=== PATIENT | male | born 1945 | race Caucasian/White ===

== ENCOUNTER 2016-10-24 14:51 | Inpatient (IN) | payer MEDICARE, BC ==
[~2016-10-24] VITALS: Ht 180.3 cm; Wt 117.9 kg
[2016-10-27] MEDS ORDERED: ATEN25TA PO (09:45)
[2016-10-27] MEDS ORDERED: FENO160T PO (09:46)
[2016-10-27] MEDS ORDERED: METF500T PO (09:46)
[2016-10-27] MEDS ORDERED: ATOR40TA16 PO (09:47)
[2016-10-27] MEDS ORDERED: RANI150C PO (09:48)
[2016-10-27] MEDS ORDERED: HYDR-3583 PO (09:49)
[2016-11-12] MEDS ORDERED: METOPROLOL TARTRATE 25 MG TAB PO PRN (06:30)
[2016-11-12] MEDS: ROPIVACAINE PERI-ARTICULAR INJECTION. PERIART SCH ×10 (06:30→10:49)
[2016-11-12] MEDS ORDERED: VANCOMYCIN 1000 MG/NS 250 ML (for <70 kg) IV SCH ×2 (06:30)
[2016-11-12] MEDS ORDERED: INSULIN HUMAN REGULAR 1,000 UNITS/10 ML VIAL SQ PRN (06:30)
[2016-11-12] MEDS ORDERED: DEXAMETHASONE SOD PHOS 20 MG/5 ML VIAL IV ONE (06:30)
[2016-11-12] MEDS: POVIDONE IODINE 7.5% SCRUB 118 ML BOTTLE TOP SCH (06:30)
[2016-11-12] MEDS ORDERED: SODIUM CHLORID 0.9% 500 ML IV SCH (06:30)
[2016-11-12] MEDS ORDERED: ceFAZolin 2 GM PREMIX 50 ML IV SCH (06:30)
[2016-11-12 06:39] VITALS: BP 144/69; PULSE 74; RESP 16; TEMP 98.3; O2SAT 96
--- NOTE | 2016-11-12 06:58 | HHI.DCPOC ---
Discharge Care Plan Diagnosis: (1) Primary localized osteoarthrosis, lower leg (2) Status post total knee replacement, right Your Health Problems Are: Difficulty with ADL Goals to Promote Your Health * To prevent worsening of your condition and complications * To maintain your health at the optimal level Directions to Meet Your Goals Take your medications as prescribed Follow your dietary instruction Follow activity as directed Keep your appointments as scheduled Take your immunizations and boosters as scheduled If your symptoms worsen call your PCP, if no PCP go to Urgent Care Center or Emergency Room Smoking is Dangerous to Your Health. Avoid second hand smoke Call the 24-hour hour crisis hotline for domestic abuse at Erwin Saba Nov 12, 2016 06:58
--- NOTE | 2016-11-12 06:59 | HHI.FF ---
Face to Face Verification Diagnosis: (1) Primary localized osteoarthrosis, lower leg (2) Status post total knee replacement, right Physical Therapy Gait training, Transfer training, bed to chair Knee: Total knee Right LE Weight Bearing: WB as tolerated Right LE Range of Motion: Active ROM Nursing Nursing: [place] teaching, Dressing changes Dressing Changes: Daily dressing change I have seen patient David Rojas on 11/12/16. My clinical findings support the need for the requested home health care services because: Limited ability to care for self High risk of falls I certify that my clinical findings support that this patient is homebound because: Post-op weakness Unsteady gait/balance Erwin Saba Nov 12, 2016 06:59
[2016-11-12] MEDS ORDERED: WALKER WHEELS/F1 MIS (07:00)
[2016-11-12] MEDS: LACTATED RINGER'S 1000 ML IV SCH (07:00)
[2016-11-12] MEDS ORDERED: CPMMACHINE (07:00)
[2016-11-12] MEDS ORDERED: COMMODE 3-IN-11 MIS (07:00)
[2016-11-12] MEDS: TRANEXAMIC ACID IV SCH ×2 (07:15→10:25)
[2016-11-12] MEDS: SODIUM CHLORIDE 0.9% IV SCH ×2 (07:15→10:25)
[2016-11-12] MEDS ORDERED: GENTAMICIN SULFATE 80 MG/2 ML VIAL ONE (07:24)
[2016-11-12] MEDS ORDERED: HYDROmorphone HCL PF 2 MG/ML VIAL ONE (09:52)
[2016-11-12] MEDS ORDERED: ACETAMINOPHEN 1000 MG/100 ML VIAL IV ONE (09:52)
[2016-11-12] MEDS ORDERED: MIDAZOLAM HCL 5 MG/5 ML VIAL ONE (09:57)
[2016-11-12] MEDS ORDERED: fentaNYL CITRATE 250 MCG/5 ML AMP ONE (10:01)
--- NOTE | 2016-11-12 11:54 | PD.OP ---
cc: Young Lay MD Operative Report Date of Surgery: Nov 12, 2016 Preoperative Diagnosis: Right knee severe osteoarthritis Postoperative Diagnosis: Same Procedure: Right total knee arthroplasty Anesthesia: Adductor canal block and general Surgeon: Young Lay Bottom Bleacher(s): MANISHA Gonzales The surgical procedure was assisted by my Advanced Registered Nurse Practitioner. My UNEMPLOYMENT INSURANCE DIRECTOR presence was necessary throughout this case for the manipulation and positioning of the surgical extremity. My UNEMPLOYMENT INSURANCE DIRECTOR was assisting me throughout the duration of this procedure. The skill set of an Advance Registered Nurse Practitioner was medically necessary to complete this procedure. During the surgical case, the surgical product sales consultant was working at the back table and the Advance Registered Nurse Practitioner was directly assisting me. Operation and Findings: IMPLANTS: DePuy Attune: Patella: size 38. Femur, posterior stabilized size 8. Tibia, rotating platform size 8. Tibial insert, rotating platform, posterior stabilized size 5 mm thickness. ESTIMATED BLOOD LOSS: 125 cc TOURNIQUET TIME: 40 minutes at 250 mmHg pressure. JUSTIFICATION FOR PROCEDURE: The patient has end-stage osteoarthritis to the knee. There is an attached conservative measures pathway form in the chart that describes the nonoperative measures that were undertaken prior to consideration of surgical management. The patient understood the risks and benefits of surgical management. See my office notes for further details PROCEDURE: The patient was brought back to the operative theatre. Adequate anesthesia was obtained. The patient received intravenous vancomycin and Ancef. The lower extremity was prepped and draped in the usual sterile fashion.The leg was exsanguinated, the tourniquet was raised. A standard anterior incision was performed followed by medial parapatellar arthrotomy was performed. End-stage arthritis was identified. Osteotomy of the patella was performed. We drilled holes for the patella. We trialed the patella component. We placed an intramedullary guide into the distal femur. We ultimately resected 11 mm off of the distal femur in 5 degrees of valgus. The remnants of the ACL and PCL were resected. Osteotomy of the proximal tibia was performed, resecting 5 mm off of the medial side. This was done with 3 degrees of posterior slope using an extramedullary guide. The distal end of the guide was placed in the mid aspect of the ankle. The femur was sized, and four chamfer cuts were completed in 3 of external rotation. We then cut the central box in the distal femur to replace the PCL. We resected the remnants of the menisci and removed osteophytes off of the femur and tibia. We then trialed the knee. We punched the tibia for the keel, and then used standard technique to cement in components. Excess cement was removed. We trialed the knee again and the final polyethylene thickness was chosen to provide extension to 0 degrees, and flexion of 140 degrees to gravity. The ligaments were appropriately balanced. Lateral release was necessary to obtain excellent patellofemoral tracking. The tourniquet was released and adequate hemostasis was obtained. An intra- articular injection of a ropivacaine cocktail was injected. The posterior knee was inspected for excess cement, which was removed. The final polyethylene was put into position after thorough irrigation. We then closed deep fascia with a #2 Stratafix followed by skin with 2-0 Vicryl followed by anibal. Postop plan is to weight-bear as tolerated. DVT prophylaxis will be performed with Kane, RICHELLE gasca, early mobilization, and Lovenox followed by aspirin. Young Lay MD Nov 12, 2016 11:54
[2016-11-12] MEDS ORDERED: HYDR-3366 PO (11:56)
[2016-11-12] MEDS ORDERED: ASPI325T PO (11:56)
[2016-11-12] MEDS ORDERED: ENOX40P SQ (11:56)
[2016-11-12] MEDS ORDERED: BISACODYL 10 MG SUPP PR PRN (12:00)
[2016-11-12] MEDS ORDERED: diphenhydrAMINE HCL 50 MG/ML VIAL IV PRN (12:00)
[2016-11-12] MEDS ORDERED: ALUMINUM/MAGNESIUM/SIMETH 30 ML CUP PO PRN (12:00)
[2016-11-12] MEDS ORDERED: ONDANSETRON HCL 4 MG/2 ML VIAL IVP PRN (12:00)
[2016-11-12] MEDS ORDERED: ACETAMINOPHEN/HYDROcodone 325 MG/10 MG TAB PO PRN (12:00)
[2016-11-12] MEDS ORDERED: NALOXONE HCL 0.4 MG/ML AMP IV PRN (12:00)
[2016-11-12] MEDS ORDERED: MORPHINE SULFATE 4 MG/ML INJ IV PUSH PRN (12:00)
[2016-11-12] MEDS ORDERED: MAGNESIUM HYDROXIDE SUSP 30 ML CUP PO PRN (12:00)
[2016-11-12] MEDS ORDERED: Post-op Orders (for Pharmacy) MISC XX ONE (12:00)
[2016-11-12] MEDS ORDERED: ZOLPIDEM TARTRATE 5 MG TAB PO PRN (12:00)
[2016-11-12] MEDS ORDERED: SODIUM CHLORIDE 0.9% FLUSH 5 ML FLUSH IVF PRN (12:00)
[2016-11-12] MEDS ORDERED: DO NOT ADM ANY ANTICOAGULANT DRUGS XX PRN (12:18)
[2016-11-12] MEDS ORDERED: BUPIVACAINE LIPOSOME PF 1.3% 20 ML VIAL ONE (12:22)
[2016-11-12] MEDS ORDERED: *RESP: ALBUTEROL 2.5 MG/3 ML NEB (PRN) PERIprocedural Use ONLY NEB ONE (12:39)
[2016-11-12] MEDS ORDERED: *morphine SULFATE 8 MG/ML PERIprocedure ONLY ONE ×2 (12:59→13:14)
--- NOTE | 2016-11-12 13:20 | RADRPT ---
EXAM DATE/TIME: 11/12/2016 12:44 [facility] COMPARISON: No previous studies available for comparison. INDICATIONS : Evaluate knee post total replacement. MEDICAL HISTORY : None. SURGICAL HISTORY : None. ENCOUNTER: Initial ACUITY: 1 day PAIN SCORE: 4/10 LOCATION: Right knee FINDINGS: There is placement of total knee prosthesis well seated with anterior overlying surgical anibal and air in soft tissues CONCLUSION: Prosthesis well seated Erik Medley MD on November 12, 2016 at 13:18 Board Certified Radiologist. This report was verified electronically.
[2016-11-12] MEDS: SODIUM CHLOR 0.9% 1000 ML INJ 1,000 ML IV SCH (13:25)
[2016-11-12] MEDS ORDERED: ONDANSETRON HCL 4 MG/2 ML VIAL IV PUSH ONE (13:55)
[2016-11-12] MEDS ORDERED: NEOSTIGMINE 3 MG/3 ML SYR IV ONE (13:55)
[2016-11-12] MEDS ORDERED: PROPOFOL 200 MG/20 ML AMP IV ONE (13:55)
[2016-11-12] MEDS ORDERED: LACTATED RINGER'S 1000 ML INJ 1,000 ML IV ONE (13:55)
--- NOTE | 2016-11-12 15:39 | PD.CONS ---
HPI Service [facility] Hospitalists Consult Requested By Dr. Lay Reason for Consult Medical management Primary Care Physician Christian Mclaughlin MD, [facility] Diagnoses: (1) Primary localized osteoarthrosis, lower leg (2) BPH (benign prostatic hypertrophy) (3) Diabetes mellitus (4) Hyperlipidemia (5) Hypertension History of Present Illness The patient is a 70-year-old male seen following right total knee arthroplasty. Hospitalist consultation was requested for medical management. Patient reports history of hypertension, BPH, diabetes mellitus. Pain is currently well controlled. Patient has no acute complaints. Review of Systems Constitutional: DENIES: Fever, Chills, Night Sweats Eyes: DENIES: Blurred vision, Vision loss Ears, nose, mouth, throat: DENIES: Hearing loss Respiratory: DENIES: Cough, Wheezing, Sputum production, Shortness of breath Cardiovascular: DENIES: Chest pain, Palpitations, Dyspnea on Exertion, Lower Extremity Edema Gastrointestinal: DENIES: Abdominal pain, Constipation, Diarrhea, Nausea, Vomiting Genitourinary: DENIES: Urinary frequency, Urinary incontinence, Urgency, Hematuria, Dysuria, Nocturia Musculoskeletal: COMPLAINS OF: Joint pain, DENIES: Muscle aches Integumentary: DENIES: Pruritus, Rash Hematologic/lymphatic: DENIES: Bruising Neurologic: DENIES: Headache Past Family Social History Allergies: Coded Allergies: No Known Allergies (Unverified , 11/12/16) Past Medical History BPH Diabetes mellitus Hyperlipidemia Hypertension Osteoarthritis Past Surgical History Left total knee arthroplasty Tonsillectomy Hernia repair Left orchiectomy Reported Medications Atenolol 25 mg twice a day Metformin 500 mg twice a day Fenofibrate 160 mg daily Lovastatin 40 mg daily at bedtime Ranitidine 150 mg twice a day [place] 10/325 as needed Family History Heart disease Diabetes mellitus Social History Quit smoking 30 years ago. Rare alcohol use. Denies illicit drug use. Physical Exam Vital Signs Vital Signs Date Time Temp Pulse Resp B/P Pulse Ox O2 Delivery O2 Flow Rate FiO2 11/12/16 13:00 58 15 113/68 98 Nasal Cannula 3 11/12/16 12:45 72 14 137/60 99 Aerosol Mask 11/12/16 12:30 88 16 130/55 96 Aerosol Mask 11/12/16 12:15 97.6 82 14 130/68 96 Simple Mask 6 11/12/16 06:39 98.3 74 16 144/69 96 Physical Exam GENERAL: Elderly male in no acute distress. HEENT: Normocephalic, atraumatic. Pupils equal, round and reactive. Extraocular movements intact. No scleral icterus. No injection or drainage. Oropharynx is clear. Mucous membranes are moist. CARDIOVASCULAR: Regular rate and rhythm without murmurs, gallops, or rubs. RESPIRATORY: Clear to auscultation. No wheezes, rales, or rhonchi. Breathing is non-labored. GASTROINTESTINAL: Abdomen soft, non-tender, nondistended. EXTREMITIES: No lower extremity edema. No calf tenderness. Right leg bandaged. PSYCH: Alert and oriented x 3. Laboratory Laboratory Tests Test 11/12/16 06:25 Blood Type A NEGATIVE Antibody Screen NEGATIVE Imaging Last Impressions Knee X-Ray 11/12/16 1151 Signed Impressions: Service Date/Time: Saturday, November 12, 2016 12:44 - CONCLUSION: Prosthesis well seated Erik Medley MD Assessment and Plan Assessment and Plan 1. Osteoarthritis: Status post right total knee arthroplasty, POD #0. Management per orthopedic surgery. Continue pain control, bowel regimen, physical therapy. 2. Hyperlipidemia: Continue Lipitor, fenofibrate. 3. Hypertension: Continue atenolol. 4. GERD: Continue Pepcid. 5. Diabetes mellitus: Continue metformin. Monitor Accu-Cheks and cover with sliding scale insulin. 6. DVT prophylaxis: Lovenox. Brady Tovar MD Nov 12, 2016 15:39
[2016-11-12] MEDS ORDERED: GLUCAGON 1 MG/ML VIAL OTHER PRN (15:45)
[2016-11-12] MEDS ORDERED: DEXTROSE 50% IN WATER 50 ML VIAL(D50) IV PUSH PRN (15:45)
[2016-11-12 16:00] VITALS: BP 112/66; PULSE 83; RESP 18; TEMP 96.4; O2SAT 92
[2016-11-12] MEDS ORDERED: SODIUM CHLORIDE 0.9% IV SCH (16:00)
[2016-11-12] MEDS ORDERED: TRANEXAMIC ACID IV SCH (16:00)
[2016-11-12] MEDS: INSULIN ASPART SUPPLEMENTAL SCALE SQ SCH ×2 (16:59→21:00)
[2016-11-12] MEDS: metFORMIN HCL 500 MG TAB PO SCH (17:00)
[2016-11-12] MEDS: ACETAMINOPHEN/HYDROcodone 325 MG/10 MG TAB PO PRN (18:28)
[2016-11-12 20:00] VITALS: BP 124/70; PULSE 80; RESP 17; TEMP 97.9; O2SAT 94
[2016-11-12] MEDS ORDERED: ATORVASTATIN 40 MG TAB PO SCH (21:00)
[2016-11-12] MEDS: SODIUM CHLORIDE 0.9% FLUSH 5 ML FLUSH IVF SCH (21:00)
[2016-11-12] MEDS: ATENOLOL 25 MG TAB PO SCH (23:00)
[2016-11-12] MEDS: FAMOTIDINE 20 MG TAB PO SCH (23:00)
[2016-11-13 00:10] VITALS: BP 103/64; PULSE 67; RESP 17; TEMP 98.6; O2SAT 96
[2016-11-13] MEDS: ACETAMINOPHEN/HYDROcodone 325 MG/10 MG TAB PO PRN ×3 (00:36→14:15)
[2016-11-13] MEDS: SODIUM CHLOR 0.9% 1000 ML INJ 1,000 ML IV SCH ×2 (00:41→08:36)
[2016-11-13 04:01] VITALS: BP 115/56; PULSE 68; RESP 17; TEMP 97.7; O2SAT 94
[2016-11-13 05:00] LABS: HEMATOCRIT 34.8 % (39.0-51.0); MEAN CELL VOLUME 88.9 FL (80.0-100.0); MEAN CORPUSCULAR HEMOGLOBIN 30.5 PG (27.0-34.0); MEAN CORPUSCULAR HGB CONC 34.3 % (32.0-36.0); PLATELET COUNT 150 TH/MM3 (150-450); RED BLOOD COUNT 3.91 MIL/MM3 (4.50-5.90); REVIEW FLAG FINAL; WHITE BLOOD COUNT 10.3 TH/MM3 (4.0-11.0)
[2016-11-13] MEDS: POVIDONE IODINE 7.5% SCRUB 118 ML BOTTLE TOP SCH (06:30)
[2016-11-13] MEDS: LACTATED RINGER'S 1000 ML IV SCH (06:30)
[2016-11-13] MEDS: INSULIN ASPART SUPPLEMENTAL SCALE SQ SCH ×3 (07:00→15:37)
[2016-11-13] MEDS ORDERED: DEXAMETHASONE SOD PHOS 20 MG/5 ML VIAL IV ONE (07:45)
[2016-11-13 08:00] VITALS: BP 104/65; PULSE 56; RESP 18; TEMP 98.3; O2SAT 95
[2016-11-13 08:22] VITALS: O2SAT 98
[2016-11-13] MEDS: FAMOTIDINE 20 MG TAB PO SCH (08:33)
[2016-11-13] MEDS: ATENOLOL 25 MG TAB PO SCH (08:33)
[2016-11-13] MEDS: SODIUM CHLORIDE 0.9% FLUSH 5 ML FLUSH IVF SCH (08:33)
[2016-11-13] MEDS: metFORMIN HCL 500 MG TAB PO SCH (08:33)
[2016-11-13] MEDS ORDERED: FENOFIBRATE 145 MG TAB PO SCH (09:00)
[2016-11-13] MEDS ORDERED: ENOXAPARIN SODIUM 40 MG/0.4 ML SYRINGE SQ SCH (11:00)
--- NOTE | 2016-11-13 11:38 | HHI.PR ---
Subjective Remarks Follow up hypertension, diabetes mellitus. Patient has no complaints at this time. He denies chest pain, dyspnea, nausea, vomiting. Objective Vitals Vital Signs Date Time Temp Pulse Resp B/P Pulse Ox O2 Delivery O2 Flow Rate FiO2 11/13/16 08:22 98 21 11/13/16 08:00 98.3 56 18 104/65 95 11/13/16 04:01 97.7 68 17 115/56 94 11/13/16 00:10 98.6 67 17 103/64 96 11/12/16 20:00 97.9 80 17 124/70 94 11/12/16 16:00 96.4 83 18 112/66 92 11/12/16 14:45 84 14 107/70 95 Nasal Cannula 3 11/12/16 14:00 74 14 121/62 95 Nasal Cannula 3 11/12/16 13:30 97.4 69 14 118/59 95 Nasal Cannula 3 11/12/16 13:15 59 14 118/59 97 Nasal Cannula 3 11/12/16 13:00 58 15 113/68 98 Nasal Cannula 3 11/12/16 12:45 72 14 137/60 99 Aerosol Mask 11/12/16 12:30 88 16 130/55 96 Aerosol Mask 11/12/16 12:15 97.6 82 14 130/68 96 Simple Mask 6 I/O 11/12/16 11/12/16 11/12/16 11/13/16 11/13/16 11/13/16 07:00 15:00 23:00 07:00 15:00 23:00 Intake Total 2225 ml 240 ml 726 ml Output Total 500 ml 600 ml 400 ml Balance 1725 ml -360 ml 326 ml Intake Oral 240 ml 120 ml IV Total 225 ml 606 ml Other 2000 ml Output Urine Total 375 ml 600 ml 400 ml Estimated Blood Loss 125 ml # Bowel Movements 0 0 Result Diagram: 11/13/16 0311 Imaging Last Impressions Knee X-Ray 11/12/16 1151 Signed Impressions: Service Date/Time: Saturday, November 12, 2016 12:44 - CONCLUSION: Prosthesis well seated Erik Medley MD Objective Remarks General: Elderly male in no acute distress. Sitting up in a chair. Heart: Regular rate and rhythm. No murmur. Lungs: Clear to auscultation bilaterally. No wheezes, rales, or rhonchi. Breathing is nonlabored. Abdomen: Soft, nontender, nondistended. Extremities: No lower extremity edema. Right lower extremity bandaged. Psych: Alert and oriented. Urinary Catheter: No Vascular Central Line Catheter: No A/P Problem List: (1) Primary localized osteoarthrosis, lower leg ICD Code: M17.10 Status: Acute (2) BPH (benign prostatic hypertrophy) ICD Code: N40.0 Status: Acute (3) Diabetes mellitus ICD Code: E11.9 Status: Acute (4) Hyperlipidemia ICD Code: E78.5 Status: Acute (5) Hypertension ICD Code: I10 Status: Acute Assessment and Plan 1. Osteoarthritis: Status post right total knee arthroplasty, POD #1. Management per orthopedic surgery. Continue pain control, bowel regimen, physical therapy. 2. Hyperlipidemia: Continue Lipitor, fenofibrate. 3. Hypertension: Continue atenolol. Blood pressure is well controlled. 4. GERD: Continue Pepcid. 5. Diabetes mellitus: Continue metformin. Monitor Accu-Cheks and cover with sliding scale insulin. 6. DVT prophylaxis: Lovenox. Discharge Planning Per orthopedic surgery. Brady Tovar MD Nov 13, 2016 11:38
[2016-11-13 12:00] VITALS: BP 115/63; PULSE 63; RESP 18; TEMP 97.2; O2SAT 92
--- NOTE | 2016-11-13 12:24 | PD.ORT.PN ---
Subjective Post Op Day #: 1 Subjective Remarks The patient is OOB in chair with minimal pain. Patient states his is having less pain than he did with his previous left TKA. Patient's cath is removed but he has not voided. Objective Vitals Vital Signs Date Time Temp Pulse Resp B/P Pulse Ox O2 Delivery O2 Flow Rate FiO2 11/13/16 08:22 98 21 11/13/16 08:00 98.3 56 18 104/65 95 11/13/16 04:01 97.7 68 17 115/56 94 11/13/16 00:10 98.6 67 17 103/64 96 11/12/16 20:00 97.9 80 17 124/70 94 11/12/16 16:00 96.4 83 18 112/66 92 11/12/16 14:45 84 14 107/70 95 Nasal Cannula 3 11/12/16 14:00 74 14 121/62 95 Nasal Cannula 3 11/12/16 13:30 97.4 69 14 118/59 95 Nasal Cannula 3 11/12/16 13:15 59 14 118/59 97 Nasal Cannula 3 11/12/16 13:00 58 15 113/68 98 Nasal Cannula 3 11/12/16 12:45 72 14 137/60 99 Aerosol Mask 11/12/16 12:30 88 16 130/55 96 Aerosol Mask 11/12/16 12:15 97.6 82 14 130/68 96 Simple Mask 6 I/O 11/12/16 11/12/16 11/12/16 11/13/16 11/13/16 11/13/16 07:00 15:00 23:00 07:00 15:00 23:00 Intake Total 2225 ml 240 ml 726 ml Output Total 500 ml 600 ml 400 ml Balance 1725 ml -360 ml 326 ml Intake Oral 240 ml 120 ml IV Total 225 ml 606 ml Other 2000 ml Output Urine Total 375 ml 600 ml 400 ml Estimated Blood Loss 125 ml # Bowel Movements 0 0 Result Diagram: 11/13/16310 Procedures Right TKA Objective Remarks The patient's dressing was changed with scant serosanguineous drainage. Incision is well approximated with surgical clips intact. No redness or s/s of infection. EHL/TA/G intact. 2+ pedal pulse. No swelling. Calf is soft and nontender. + SILT. Assessment & Plan Ortho Post Op Day #: 1 Problem List: Assessment and Plan POD #1: Right TKA 1. WBAT to the RLE 2. Lovenox for DVT prophylaxis 3. Ice to the right knee PRN 4. Stable for discharge home with home health today providing he is urinating independently without complication. Erwin Saba Nov 13, 2016 12:24
[2016-11-13] MEDS ORDERED: DOCUSATE SODIUM 100 MG CAP PO SCH (21:00)
[2016-11-13] MEDS ORDERED: MULTIVITAMINS/MINERALS THERAPEUTIC TAB PO SCH (21:00)
--- NOTE | 2016-11-15 17:19 | HHI.DS ---
Discharge Summary Admission Date Nov 12, 2016 at 05:45 Discharge Date: Nov 13, 2016 Admitting Diagnosis Primary localized OA, lower leg Status post total knee replacement, right Diagnosis: (1) Status post total knee replacement, right Diagnosis: Principal (2) Primary localized osteoarthrosis, lower leg Diagnosis: Principal Procedures Right TKA Brief History This is a 70 year old male patient with severe OA of the right knee CBC/BMP: 11/13/16 0311 Significant Findings Laboratory Tests Test 11/13/16 03:11 Red Blood Count 3.91 MIL/MM3 (4.50-5.90) Hemoglobin 11.9 GM/DL (13.0-17.0) Hematocrit 34.8 % (39.0-51.0) PE at Discharge The patient's dressing was changed with scant serosanguineous drainage. Incision is well approximated with surgical clips intact. No redness or s/s of infection. EHL/TA/G intact. 2+ pedal pulse. No swelling. Calf is soft and nontender. + SILT. Hospital Course The patient was admitted to the hospital for severe OA of the right knee to have a right TKA. The patient's surgery went well without complication. The patient had a normal hospital course. The patient is WBAT with the use of a walker. The patient was discharged home with home health and will f/u in the office with Dr. Lay in 1-2 weeks. Pt Condition on Discharge: Stable Discharge Disposition: Disch w/ Home Health Serv Discharge Instructions Diet Instructions: Diabetic Diet Activities You Can Perform: Weight Bearing as Jayesh Activities to Avoid: Strenuous Activity Follow up Referrals: Orthopedics with Young Lay MD [facility]/ with Nurse Circulation Clerk [phone] New Medications: Aspirin (Aspirin) 325 Mg Tab 325 MG PO DAILY Start Aspirin after Lovenox is completed. Prevent Blood Clot # 30 Ref 0 TAB Commode 3-in-1 (Commode 3-in-1) 1 Mis Mis 1 EA .ROUTE DIRECTED #1 Ref 0 EA CPM-Continuous Passive Motion Machine (CPM-Continuous Passive Motion Machine) 1 Ea Device 1 EA .ROUTE DIRECTED #1 Ref 0 EA Enoxaparin Inj (Lovenox Inj) 40 Mg/0.4 Ml Syr 40 MG SQ DAILY Start Aspirin after Lovenox is completed. Blood Clot Prevention # 10 Ref 0 SYRINGE Hydrocodone-Acetaminophen ([place]) 10-325 Mg Tab 1-2 TAB PO Q4H PRN PAIN #60 Ref 0 TAB Walker with Front Wheels (Walker with Front Wheels) 1 Mis Mis 1 EA .ROUTE DIRECTED #1 Ref 0 EA Continued Medications: Atenolol (Atenolol) 25 Mg Tab 25 MG PO BID Blood Pressure Management #60 Ref 0 TAB Atorvastatin (Atorvastatin) 40 Mg Tab 40 MG PO HS Cholesterol Management #30 Ref 0 TAB Fenofibrate (Fenofibrate) 160 Mg Tab 160 MG PO DAILY #30 Ref 0 TAB Metformin (Metformin) 500 Mg Tab 500 MG PO BIDPC With meals Blood Sugar Management #60 Ref 0 TAB Ranitidine (Ranitidine) 150 Mg Cap 150 MG PO BID #60 Ref 0 CAP Discontinued Medications: Hydrocodone-Acetaminophen (Hydrocodone-Acetaminophen) 10-325 mg Tab 1 TAB PO Q6H PRN PAIN Ref 0 TAB Erwin Saba Nov 15, 2016 17:19
== END 2016-11-13 16:52 | disposition home health service (06) | DRG 470 ==
LOC: HSDI 11-12 05:45 → N06A 11-12 15:28
PROVIDERS: ADMIT Orthopaedic Surgery; ATTEND Orthopaedic Surgery
PROC: 3E0T3BZ Introduction of Anesthetic Agent into Peripheral Nerves and Plexi, Percutaneous Approach (ICD-10-PCS; 2016-11-12)
PROC: 0SRC0J9 Replacement of Right Knee Joint with Synthetic Substitute, Cemented, Open Approach (ICD-10-PCS; principal; 2016-11-12 10:11)
DX: M17.11 Unilateral primary osteoarthritis, right knee (principal); E11.9 Type 2 diabetes mellitus without complications; Z79.84 Long term (current) use of oral hypoglycemic drugs; I10 Essential (primary) hypertension; E78.5 Hyperlipidemia, unspecified; K21.9 Gastro-esophageal reflux disease without esophagitis; N40.0 Benign prostatic hyperplasia without lower urinary tract symptoms; Z87.891 Personal history of nicotine dependence; Z96.652 Presence of left artificial knee joint
CPT/HCPCS: 73560; 82948; 85027; 86850; 86900; 86901; 94150; 94664; C1776; C9290; J0131; J0171; J0690; J0735; J1100; J1170; J1580; J1650; J1885; J2250; J2270; J2405; J2710; J2795; J3010; J3370; J7030; J7050; J7120; J7613; L1830

== ENCOUNTER → 2016-10-27 | Outpatient (CLI) | payer MEDICARE, BC ==
[~2016-10-27] MED LIST: ASPI325T PO; ATEN-102 PO; ATEN25TA PO; ATOR40TA16 PO; COMMODE 3-IN-11 MIS; CPMMACHINE; CYCL1PAK PO; DOXA1 PO; ENOX40P SQ; FENO160T PO; FENO160T2 PO; GLUC15002 PO; GLUCTAB PO; HYDR-3366 PO; HYDR-3583 PO; LORTA5 PO; METF500T PO; MULTTAB63 PO; OMEG100010 PO; PRAV40TA2 PO; RANI150C PO; RANI1TAB5 PO; VITA5000 PO; WALKER WHEELS/F1 MIS
[2016-10-27 10:50] LABS: AUTOMATED NEUTROPHIL # 3.2 TH/MM3 (1.8-7.7); BASOPHIL % 0.6 % (0.0-2.0); EOSINOPHIL # 0.2 TH/MM3 (0-0.4); EOSINOPHIL % 4.7 % (0.0-4.0); HEMATOCRIT 43.5 % (39.0-51.0); HEMO FLAGS DIFF FINAL; LYMPH % 27.1 % (9.0-44.0); LYMPHOCYTE # 1.4 TH/MM3 (1.0-4.8); MEAN CELL VOLUME 88.9 FL (80.0-100.0); MEAN CORPUSCULAR HEMOGLOBIN 30.2 PG (27.0-34.0); MONO % 7.2 % (0.0-8.0); NEUT % 60.4 % (16.0-70.0); PLATELET COUNT 144 TH/MM3 (150-450); RED CELL DISTRIBUTION WIDTH 13.4 % (11.6-17.2); WHITE BLOOD COUNT 5.2 TH/MM3 (4.0-11.0)
[2016-10-27 10:53] LABS: BLOOD, URINE NEG (NEG); GLUCOSE,URINE NEG (NEG); KETONE, URINE NEG (NEG); MUCUS URINE FEW /lpf (OCC); NITRITE,URINE NEG (NEG); URINE COLOR YELLOW (YELLW/STRAW)
[2016-10-27 10:56] LABS: APTT (PATIENT) 30.1 SEC (24.3-30.1); INTERNATIONAL NORMALIZED RATIO 0.9 RATIO; PROTHROMBIN TIME - PATIENT 10.4 SEC (9.8-11.6)
[2016-10-27 10:58] LABS: COMMENT (UR) CULT NOT INDICATED; CULTURE IF INDICATED CULT NOT INDICATED
[2016-10-27 11:09] LABS: WESTERGREN SEDIMENTATION RATE 3 mm/hr (0-20)
[2016-10-27 11:18] LABS: ALT (GPT) 28 U/L (12-78); ANION GAP 7 MEQ/L (5-15); AST (GOT) 16 U/L (15-37); BICARBONATE 26.5 MEQ/L (21.0-32.0); BLOOD UREA NITROGEN 11 MG/DL (7-18); CHLORIDE 110 MEQ/L (98-107); GLOMERULAR FILTRATION RATE 73 ML/MIN (>89); GLUCOSE,FASTING 107 MG/DL (74-99); SODIUM (NA) 143 MEQ/L (136-145)
[2016-10-27 11:20] LABS: ALKALINE PHOSPHATASE 38 U/L (45-117); TOTAL BILIRUBIN ADULT 0.4 MG/DL (0.2-1.0)
--- NOTE | 2016-10-27 14:25 | RADRPT ---
EXAM DATE/TIME: 10/27/2016 11:17 [facility] COMPARISON: CHEST SINGLE AP, April 28, 2014, 8:35. INDICATIONS : Evaluate for pneumonia, pneumothorax or communicable disease. Pre op for right knee surgery 11-12-15/ MEDICAL HISTORY : None. SURGICAL HISTORY : None. ENCOUNTER: Initial ACUITY: 1 day PAIN SCORE: 0/10 LOCATION: Bilateral chest FINDINGS: PA and lateral views of the chest demonstrate the lungs to be symmetrically aerated without evidence of mass, infiltrate or effusion. The cardiomediastinal contours are unremarkable. Osseous structure s are intact. CONCLUSION: No acute disease. Dayan Dutta MD on October 27, 2016 at 12:08 Board Certified Radiologist. This report was verified electronically.
--- NOTE | 2016-10-28 14:26 | EKG ---
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
== END ==
LOC: CPRE 09:08
PROVIDERS: ATTEND Orthopaedic Surgery
DX: Z01.810 Encounter for preprocedural cardiovascular examination (principal); Z01.812 Encounter for preprocedural laboratory examination; M17.11 Unilateral primary osteoarthritis, right knee; M25.50 Pain in unspecified joint; R94.31 Abnormal electrocardiogram [ECG] [EKG]
CPT/HCPCS: 36415; 71020; 80053; 81001; 85025; 85610; 85652; 85730; 93005